=== PATIENT | female | born 1980 | race Caucasian/White ===

== ENCOUNTER 2017-06-16 08:28 | Emergency (ER) | payer MEDICAID ==
[2017-06-16] MEDS: HYDROCODONE/APAP (5/325) TAB PO (10:52)
== END 2017-06-16 11:24 | disposition home or self-care (01) ==
LOC: FTE 08:28
DX: H57.11 Ocular pain, right eye (principal); H57.12 Ocular pain, left eye; R51 Headache
CPT/HCPCS: 70450; 76536; 99285-25